=== PATIENT | female | born 1975 | race African-American/Black ===

== ENCOUNTER 2017-03-20 13:59 | Emergency (ER) | payer MEDICARE, MEDICAID ==
[~2017-03-20 13:59] MED LIST: ALBU6.7H INH; ATEN1TAB46 PO; HYDR25TA PO; IBUP-1649 PO
== END 2017-03-20 15:30 | disposition left against medical advice (07) ==
LOC: ER 13:59
DX: Z53.21 Procedure and treatment not carried out due to patient leaving prior to being seen by health care provider (principal)

== ENCOUNTER 2017-09-05 08:54 | Emergency (ER) | payer OTHER, MEDICAID ==
[~2017-09-05] VITALS: Ht 152.4 cm; Wt 94.0 kg
[2017-09-05] MEDS ORDERED: LORAZEPAM 1MG TABLET PO ONE (16:45)
[2017-09-05] MEDS ORDERED: ARIPIPRAZOLE 10MG TABLET PO ONE (17:00)
[2017-09-05 17:02] LABS: BASOPHILS % 0.8 % (0.0-2.0); EOSINOPHILS % 0.8 % (0.0-5.0); HEMATOCRIT. 34.1 % (36.0-48.0); HEMOGLOBIN. 10.8 g/dL (12.0-16.0); LYMPHOCYTES % 22.1 % (20.0-50.0); MEAN CORPUSCULAR HEMOGLOBIN 27.3 pg (28.0-32.0); MEAN CORPUSCULAR VOLUME 86.1 fL (81.0-99.0); MEAN PLATELET VOLUME 7.9 fl (7.4-10.4); MONOCYTES % 3.9 % (2.0-8.0); NEUTROPHILS % 72.4 % (40.0-76.0); PLATELET 328 x1000/uL (130-400); RED BLOOD CELL COUNT 3.96 mill/uL (4.2-5.4); RED CELL DISTRIBUTION WIDTH 15.3 % (11.6-14.6)
[2017-09-05 17:17] LABS: CHLORIDE 102 mEq/L (98-107); ETHANOL BLOOD < 10 mg/dL
[2017-09-05 17:19] LABS: KETONES URINE NEGATIVE (NEGATIVE); LEUKOCYTE ESTERASE URINE 2+ (NEGATIVE); NITRITE URINE NEGATIVE (NEGATIVE); OCCULT BLOOD URINE NEGATIVE (NEGATIVE); PROTEIN URINE TRACE (NEGATIVE); SPECIFIC GRAVITY URINE 1.027 (1.005-1.030)
[2017-09-05 17:23] LABS: CLARITY URINE HAZY (CLEAR); COLOR URINE YELLOW (YELLOW)
[2017-09-05 17:38] LABS: *AMPHETAMINES SCREEN URINE NEGATIVE (NEGATIVE); *BARBITURATES SCREEN URINE NEGATIVE (NEGATIVE); *BENZODIAZEPINES SCREEN URINE NEGATIVE (NEGATIVE); *COCAINE SCREEN URINE NEGATIVE (NEGATIVE); CANNABINOID URINE SCREEN NEGATIVE (NEGATIVE); METHADONE URINE SCREEN NEGATIVE (NEGATIVE); OPIATES URINE SCREEN NEGATIVE (NEGATIVE); PHENCYCLIDINE URINE SCREEN NEGATIVE (NEGATIVE)
[2017-09-05] MEDS ORDERED: POTASSIUM CHLORIDE 20MEQ/PACKET PO ONE (17:45)
[2017-09-05] MEDS ORDERED: ACETAMINOPHEN 325MG TABLET PO ONE (18:00)
[2017-09-05] MEDS ORDERED: POTASSIUM CHLORIDE 20MEQ TABLET SR PO ONE (18:00)
[2017-09-05 18:18] VITALS: BP 176/89
== END 2017-09-05 18:29 | disposition home or self-care (01) ==
LOC: ER 09:24
DX: N39.0 Urinary tract infection, site not specified (principal); R51 Headache; I10 Essential (primary) hypertension; E78.00 Pure hypercholesterolemia, unspecified; F20.9 Schizophrenia, unspecified; N94.6 Dysmenorrhea, unspecified
CPT/HCPCS: 36415; 80053; 80305; 80307; 80329; 81001; 85025; 99284; G0482

== ENCOUNTER 2017-09-06 20:43 | Emergency (ER) | payer OTHER, MEDICAID ==
[~2017-09-06] VITALS: Ht 160 cm; Wt 123.0 kg
[2017-09-06 23:47] VITALS: BP 153/61
[2017-09-07 00:49] LABS: BASOPHILS % 0.5 % (0.0-2.0); HEMATOCRIT. 32.4 % (36.0-48.0); HEMOGLOBIN. 10.1 g/dL (12.0-16.0); LYMPHOCYTES % 22.2 % (20.0-50.0); MEAN CORPUSCULAR VOLUME 86.2 fL (81.0-99.0); MEAN PLATELET VOLUME 7.9 fl (7.4-10.4); MONOCYTES % 4.4 % (2.0-8.0); NEUTROPHILS % 71.9 % (40.0-76.0); PLATELET 296 x1000/uL (130-400); RED BLOOD CELL COUNT 3.76 mill/uL (4.2-5.4); RED CELL DISTRIBUTION WIDTH 15.3 % (11.6-14.6)
[2017-09-07 00:53] LABS: PROTHROMBIN TIME 10.4 sec (9.4-11.6)
[2017-09-07 01:05] LABS: CHLORIDE 104 mEq/L (98-107); TROPONIN I < 0.02 ng/mL (0.00-0.04)
== END 2017-09-07 02:49 | disposition home or self-care (01) ==
LOC: ER 20:43
DX: S20.161A Insect bite (nonvenomous) of breast, right breast, initial encounter (principal); N39.0 Urinary tract infection, site not specified; F20.9 Schizophrenia, unspecified; I10 Essential (primary) hypertension; W57.XXXA Bitten or stung by nonvenomous insect and other nonvenomous arthropods, initial encounter; Y93.89 Activity, other specified; Y92.89 Other specified places as the place of occurrence of the external cause; Y99.8 Other external cause status
CPT/HCPCS: 36415; 80053; 83690; 84484; 85025; 85610; 99284